=== PATIENT | male | born 1985 | race American Indian/Alaskan Native ===

== ENCOUNTER 2018-03-18 13:17 | Emergency (ER) | payer MEDICARE ==
--- NOTE | 2018-03-18 13:46 | Emergency Department Report ---
Blank Doc - Documentation Documentation: pt is a 32 y o male hx of bipolar depression presents stating he needs clearance to be admitted to [facility] facility denies SI/HI EXAM: flat affect, depressed PLAN: labs reevaluate
[2018-03-18 14:04] LABS: Basophils # (Auto) 0.2 K/mm3 (0.0-0.1); Basophils % (Auto) 2.7 % (0.0-1.8); Eosinophils # (Auto) 0.4 K/mm3 (0.0-0.4); Eosinophils % (Auto) 5.9 % (0.0-4.3); Hematocrit 44.9 % (35.5-45.6); Hemoglobin 15.1 gm/dl (11.8-15.2); Lymphocytes # (Auto) 1.6 K/mm3 (1.2-5.4); Lymphocytes % (Auto) 20.8 % (13.4-35.0); Mean Corpuscular HGB Conc 34 % (32-34); Mean Corpuscular Volume 96 fl (84-94); Monocytes # (Auto) 0.4 K/mm3 (0.0-0.8); Monocytes % (Auto) 5.3 % (0.0-7.3); Platelet Count 281 K/mm3 (140-440); Red Blood Count 4.69 M/mm3 (3.65-5.03); Red Cell Distribution Width 13.9 % (13.2-15.2)
[2018-03-18 14:25] LABS: BUN/Creatinine Ratio 10; Blood Urea Nitrogen 6 mg/dL (9-20); Calcium 9.3 mg/dL (8.4-10.2); Hemolysis Index 41
--- NOTE | 2018-03-18 14:25 | Emergency Department Report ---
HPI - General Chief Complaint: Psych Time Seen by Provider: 03/18/18 13:42 - HPI HPI: Room 17 The patient is a 32-year-old male presented with a chief complaint of chest pain and suicidal ideation. The patient was taken to [facility] by family garland blackman to suicidal ideation the past few days. The patient was sent to the ED for medical clearance. The patient states she's had chest pain for the past 2 days. Patient states he went to [place] ED first chest pain and had an EKG, labs and an x-ray performed which were normal. Patient was sent to the ED for medical clearance given his chest pain. Patient states he had some chest pain earlier this morning in the left chest that was pressure and constant in nature. The patient states he also has shortness of breath nausea and maybe some diaphoresis. Patient is currently asymptomatic states he just feels tired. The patient is to suicidal ideation for the past few days but denies having a plan or any active attempts. Location: Mental state, chest Duration: [See above] Quality: Pressure Severity: Currently 0/10 Modifying factors: [see above] Context: [see above] Mode of transportation: [not driving] ED Past Medical Hx - Past Medical History Previous Medical History?: Yes Hx Psychiatric Treatment: Yes (bipolar, depression) - Surgical History Past Surgical History?: No Additional Surgical History: Lung biopsy-benign - Family History Family history: no significant - Social History Smoking Status: Current Some Day Smoker Substance Use Type: None (denies illicit drug use), Alcohol (frequently) ED Review of Systems ROS: Stated complaint: CHEST PAIN Other details as noted in HPI Constitutional: diaphoresis Eyes: denies: eye pain ENT: denies: throat pain Respiratory: shortness of breath Cardiovascular: chest pain Endocrine: no symptoms reported Gastrointestinal: nausea. denies: vomiting Genitourinary: denies: dysuria Musculoskeletal: denies: back pain Neurological: denies: headache Psychiatric: suicidal thoughts Physical Exam - Physical Exam Vital Signs: Vital Signs 03/18/18 13:38 Temperature 98.8 F Pulse Rate 67 Respiratory 16 Rate Blood Pressure 103/52 O2 Sat by Pulse 97 Oximetry Physical Exam: GENERAL: The patient is well-developed well-nourished male lying on stretcher not appearing to be in acute distress. Flat affect HEENT: Normocephalic. Atraumatic. Extraocular motions are intact. Patient has moist mucous membranes. NECK: Supple. Trachea midline CHEST/LUNGS: Clear to auscultation. There is no respiratory distress noted. HEART/CARDIOVASCULAR: Regular. There is no tachycardia. There is no gallop rub or murmur. ABDOMEN: Abdomen is soft, nontender. Patient has normal bowel sounds. There is no abdominal distention. SKIN: There is no rash. There is no edema. There is no diaphoresis. NEURO: The patient is awake, alert, and oriented. The patient is cooperative. The patient has no focal neurologic deficits. The patient has normal speech. Flat affect MUSCULOSKELETAL: There is no evidence of acute injury. ED Course Vital Signs 03/18/18 13:38 Temperature 98.8 F Pulse Rate 67 Respiratory 16 Rate Blood Pressure 103/52 O2 Sat by Pulse 97 Oximetry ED Medical Decision Making - Lab Data Result diagrams: 03/18/18 13:44 03/18/18 13:44 Laboratory Tests 03/18/18 03/18/18 03/18/18 13:44 13:44 13:44 WBC RBC Hgb Hct MCV MCH MCHC RDW Plt Count Lymph % (Auto) [place] % (Auto) Eos % (Auto) Baso % (Auto) Lymph # [place] # Eos # Baso # Seg Neutrophils % Seg Neutrophils # D-Dimer Sodium 140 Potassium 4.1 Chloride 104.3 Carbon Dioxide 21 L Anion Gap 19 BUN 6 L Creatinine 0.6 L Estimated GFR > 60 BUN/Creatinine Ratio 10 Glucose 78 Calcium 9.3 Salicylates < 0.3 L Acetaminophen < 5.0 L Plasma/Serum Alcohol 03/18/18 03/18/18 03/18/18 13:44 13:44 15:08 WBC 7.5 RBC 4.69 Hgb 15.1 Hct 44.9 MCV 96 H MCH 32 MCHC 34 RDW 13.9 Plt Count 281 Lymph % (Auto) 20.8 [place] % (Auto) 5.3 Eos % (Auto) 5.9 H Baso % (Auto) 2.7 H Lymph # 1.6 [place] # 0.4 Eos # 0.4 Baso # 0.2 H Seg Neutrophils % 65.3 Seg Neutrophils # 4.9 D-Dimer 122.1 Sodium Potassium Chloride Carbon Dioxide Anion Gap BUN Creatinine Estimated GFR BUN/Creatinine Ratio Glucose Calcium Salicylates Acetaminophen Plasma/Serum Alcohol 0.11 H - EKG Data -: EKG Interpreted by Me EKG shows normal: sinus rhythm Rate: normal - EKG Data When compared to previous EKG there are: previous EKG unavailable Interpretation: nonspecific ST-T wave larisa (early repolarization) - Radiology Data Radiology results: image reviewed (chest x-ray) interpreted by me: Chest x-ray-no focal infiltrates, no pneumothorax - Differential Diagnosis acs, pericarditis, gerd, suicidal ideation Critical care attestation.: If time is entered above; I have spent that time in minutes in the direct care of this critically ill patient, excluding procedure time. ED Disposition Clinical Impression: Suicidal ideation, Chest pain Disposition: [id number]/TX-[id number] PSY HOSP/PSY UNIT Is pt being admited?: No Does the pt Need Aspirin: No Condition: Serious Instructions: Chest Pain (ED) Additional Instructions: Return to the emergency department immediately should you develop worsening symptoms, fever, inability to tolerate food or liquid or any other concerns. Time of Disposition: 16:01 (d/c to [facility])
--- NOTE | 2018-03-18 20:03 | XRay Report ---
FINAL REPORT EXAM: XRAY CHEST 2 VIEWS HISTORY: CHEST PAIN TECHNIQUE: Two view chest PA and lateral PRIORS: None. FINDINGS: Cardiac and mediastinal contours are unremarkable. No focal pulmonary infiltrate is identified. No pleural fluid collection seen. Pulmonary vasculature is unremarkable. IMPRESSION: Negative two-view chest
[2018-03-18 20:33] VITALS: BP 103/64
== END 2018-03-18 22:11 ==
LOC: ED 13:17
DX: R07.89 Other chest pain (principal); F31.9 Bipolar disorder, unspecified; F17.200 Nicotine dependence, unspecified, uncomplicated
CPT/HCPCS: 36415; 71046; 80048; 85025; 85379; 93005; 93010; 99285; G0480; 80320